=== PATIENT | female | born 1985 | race Caucasian/White ===

== ENCOUNTER 2020-03-01 12:08 | Emergency (ER) | payer OTHER ==
[~2020-03-01] VITALS: Ht 157.5 cm; Wt 49.0 kg
[~2020-03-01 12:08] MED LIST: BENTYL 20 MG TA20 M1 PO; CARAFATE 1 GM TA1 G1 PO; IBUPROFEN 200200 M1 PO; MACROBID 100 M100 M2 PO; OMEPRAZOLE20 MG PO; TYLENOL EXTRA500 MG PO; ZOFRAN ODT4 MG PO
[2020-03-01] MEDS ORDERED: NOHOMEMEDICATIONS (12:19)
[2020-03-01] MEDS ORDERED: TYLENOL325 M1 PO (13:52)
[2020-03-01] MEDS ORDERED: IBUPROFEN 600600 M1 PO (13:52)
[2020-03-01 14:35] VITALS: BP 96/65
== END 2020-03-01 14:44 | disposition home or self-care (01) ==
LOC: ER 12:08
DX: M79.644 Pain in right finger(s) (principal); Z88.1 Allergy status to other antibiotic agents